=== PATIENT | female | born 1955 | race Caucasian/White ===

== ENCOUNTER 2020-12-06 12:59 | Emergency (ER) | payer OTHER, MEDICARE ==
[~2020-12-06] VITALS: Ht 167.6 cm; Wt 72.6 kg
[2020-12-06 14:27] VITALS: BP 157/97
== END 2020-12-06 14:28 | disposition home or self-care (01) ==
LOC: ER 12:59
DX: T63.461A Toxic effect of venom of wasps, accidental (unintentional), initial encounter (principal); R22.0 Localized swelling, mass and lump, head; Z88.0 Allergy status to penicillin; Z91.030 Bee allergy status; Y92.89 Other specified places as the place of occurrence of the external cause